=== PATIENT | male | born 1980 | race Caucasian/White ===

== ENCOUNTER → 2016-06-06 | Outpatient (CLI) | payer BC ==
--- NOTE | 2016-06-07 07:01 | MR ---
EXAMINATION TYPE: MR lumbar spine wo con DATE OF EXAM: 06/06/2016 10:10 AM COMPARISON: NONE HISTORY: 36-year-old male with low back pain TECHNIQUE: Multiplanar, multisequence images of the lumbar spine were acquired. Findings: Vertebral body heights are preserved and alignment is maintained. Prominent red marrow compatible with patient's relatively young age. No suspicious bone marrow replac ement. There are Schmorl's nodes at L4-L5 with some mild increased T2 signal suggesting possible subacute Sc hmorl's nodes. There is mild edematous Modic type I endplate change anteriorly at L3-L4, and L4-L5 an d posteriorly at L5-S1. The L4-L5 and L5-S1 intervertebral discs are mildly desiccated with a mild disc space narrowing and d iffuse bulging. There is a posterior annular fissure extending towards the right at L5-S1. Conus medullaris is normal. From T12 down through L4 levels, there is no spinal canal or neuroforaminal stenosis. At L4-L5, there is a right paracentral broad-based disc protrusion. There is minimal bilateral inferi or foraminal narrowing without spinal canal stenosis. At L5-S1, there is very minimal broad-based disc bulge with posterior annular fissure. Minimal bilate ral inferior foraminal narrowing on both sides. No spinal canal stenosis. No prevertebral or paravertebral soft tissue abnormality. IMPRESSION: 1. Mild degenerative disc disease especially at L4-L5 and L5-S1 with some associated edematous Modic type I endplate changes. Also, findings suggest subacute to chronic endplate Schmorl's nodes at L4-L5 . 2. At L4-L5, slight bulging disc and a mild right paracentral broad-based protrusion is present. Ther e is minimal bilateral inferior neuroforaminal narrowing. 3. At L5-S1, there is minimal broad-based bulging disc with posterior annular fissure. This also resu lts in minimal bilateral inferior neural foraminal narrowing. 4. No high-grade foraminal or canal compromise.
== END | disposition home or self-care (01) ==
LOC: RADMRIMAIN 09:39
PROVIDERS: ATTEND Family Medicine
DX: M99.73 Connective tissue and disc stenosis of intervertebral foramina of lumbar region (principal); M51.37 Other intervertebral disc degeneration, lumbosacral region; M51.27 Other intervertebral disc displacement, lumbosacral region
CPT/HCPCS: 72148

== ENCOUNTER → 2019-08-09 | Outpatient (CLI) | payer BC ==
[2019-08-09 15:05] LABS: Basophils # (A) 0.1 k/uL (0-0.2); Basophils % (A) 1 %; Eosinophils # (A) 0.2 k/uL (0-0.7); Eosinophils % (A) 3 %; HCT 44.6 % (39.0-53.0); HGB 14.4 gm/dL (13.0-17.5); Lymphocytes # (A) 2.2 k/uL (1.0-4.8); Lymphocytes % (A) 28 %; MCH 29.5 pg (25.0-35.0); MCHC 32.3 g/dL (31.0-37.0); MCV 91.4 fL (80.0-100.0); Mean Platelet Volume 10.6; Monocytes # (A) 0.5 k/uL (0-1.0); Monocytes % (A) 7 %; Neutrophils # (A) 4.7 k/uL (1.3-7.7); Neutrophils % (A) 60 %; Platelet Count 176 k/uL (150-450); RBC 4.87 m/uL (4.30-5.90); RDW 13.1 % (11.5-15.5); WBC 7.9 k/uL (3.8-10.6)
[2019-08-10 02:10] LABS: Erythrocyte Sedimentation Rate 52 mm/Hr (0-15)
[2019-08-10 02:30] LABS: ALT 33 U/L (10-49); AST 30 U/L (14-35); African American GFR (CKD) 131.3 (60.0-200.0); Albumin/Globulin Ratio 2.09 (1.60-3.17); Alkaline Phosphatase 68 U/L (41-126); BUN/Creat Ratio 21.25 Ratio (12.00-20.00); C Reactive Protein <0.4 mg/dL (0.0-0.8); Calcium 9.3 mg/dL (8.7-10.3); Carbon Dioxide 23.2 mmol/L (21.6-31.8); Chloride 108 mmol/L (96-109); Globulin 2.2 g/dL (1.6-3.3); Glucose 93 mg/dL (70-110); Non-African American GFR(CKD) 113.3 (60.0-200.0); Potassium 4.1 mmol/L (3.5-5.5); Sodium 139 mmol/L (135-145); Total Bilirubin 0.4 mg/dL (0.3-1.2); Total Protein 6.8 g/dL (6.2-8.2)
== END | disposition home or self-care (01) ==
LOC: LABWHC1 14:28
PROVIDERS: ATTEND Internal Medicine Rheumatology
DX: Z79.899 Other long term (current) drug therapy (principal)
CPT/HCPCS: 36415; 80053; 85025; 85652; 86140

== ENCOUNTER → 2019-11-06 | Outpatient (CLI) | payer BC | END | disposition home or self-care (01) | LOC: LABWHC1 11:32 | PROVIDERS: ATTEND Internal Medicine Rheumatology | DX: Z51.81 Encounter for therapeutic drug level monitoring (principal); Z79.899 Other long term (current) drug therapy | CPT/HCPCS: 36415; 86480 ==

== ENCOUNTER → 2020-03-06 | Outpatient (CLI) | payer BC | END | disposition home or self-care (01) | LOC: LABWHC1 16:54 | PROVIDERS: ATTEND Emergency Medicine | DX: Z20.822 Contact with and (suspected) exposure to COVID-19 (principal) | CPT/HCPCS: U0003; C9803; U0005 ==

== ENCOUNTER → 2020-11-01 | Outpatient (CLI) | payer BC ==
[2020-11-01 19:11] LABS: Basophils # (A) 0.08 X 10*3/uL (0.00-0.10); Basophils % (A) 0.8 %; Eosinophils # (A) 0.69 X 10*3/uL (0.04-0.35); Eosinophils % (A) 6.8 %; HCT 47.3 % (39.6-50.0); HGB 15.7 g/dL (13.0-17.0); Lymphocytes # (A) 3.12 X 10*3/uL (0.90-5.00); Lymphocytes % (A) 30.7 %; MCHC 33.2 g/dL (32.0-37.0); MCV 90.3 fL (80.0-97.0); Mean Platelet Volume 14.2 fL (9.5-12.2); Monocytes % (A) 7.9 %; Neutrophils # (A) 5.44 X 10*3/uL (1.80-7.70); Neutrophils % (A) 53.4 %; Platelet Count 165 X 10*3/uL (140-440); RBC 5.24 X 10*6/uL (4.40-5.60); WBC 10.17 X 10*3/uL (4.50-10.00)
[2020-11-01 20:15] LABS: Erythrocyte Sedimentation Rate 2 mm/Hr (0-15)
[2020-11-01 22:23] LABS: ALT 33 U/L (10-49); AST 26 U/L (14-35); African American GFR (CKD) 130.4 (60.0-200.0); Albumin/Globulin Ratio 2.29 (1.60-3.17); Alkaline Phosphatase 68 U/L (41-126); C Reactive Protein <0.4 mg/dL (0.0-0.8); Calcium 9.5 mg/dL (8.7-10.3); Carbon Dioxide 23.9 mmol/L (21.6-31.8); Chloride 110 mmol/L (96-109); Globulin 2.1 g/dL (1.6-3.3); Glucose 95 mg/dL (70-110); Non-African American GFR(CKD) 112.5 (60.0-200.0); Potassium 4.5 mmol/L (3.5-5.5); Sodium 141 mmol/L (135-145); Total Bilirubin 0.2 mg/dL (0.3-1.2); Total Protein 6.9 g/dL (6.2-8.2)
== END | disposition home or self-care (01) ==
LOC: LABWHC1 11:01
PROVIDERS: ATTEND Internal Medicine Rheumatology
DX: Z79.899 Other long term (current) drug therapy (principal)
CPT/HCPCS: 36415; 80053; 85025; 85652; 86140

== ENCOUNTER → 2021-01-23 | Outpatient (CLI) | payer BC ==
[2021-01-23 23:58] LABS: Basophils # (A) 0.05 X 10*3/uL (0.00-0.10); Basophils % (A) 0.5 %; Eosinophils # (A) 0.25 X 10*3/uL (0.04-0.35); Eosinophils % (A) 2.6 %; HCT 44.4 % (39.6-50.0); HGB 14.5 g/dL (13.0-17.0); Lymphocytes # (A) 2.63 X 10*3/uL (0.90-5.00); Lymphocytes % (A) 27.8 %; MCH 30.3 pg (27.0-32.0); MCHC 32.7 g/dL (32.0-37.0); MCV 92.7 fL (80.0-97.0); Mean Platelet Volume 13.3 fL (9.5-12.2); Monocytes % (A) 9.5 %; Neutrophils # (A) 5.57 X 10*3/uL (1.80-7.70); Platelet Count 183 X 10*3/uL (140-440); RBC 4.79 X 10*6/uL (4.40-5.60); WBC 9.46 X 10*3/uL (4.50-10.00)
[2021-01-24 00:44] LABS: ALT 29 U/L (10-49); AST 21 U/L (14-35); African American GFR (CKD) 130.7 (60.0-200.0); Albumin 4.6 g/dL (3.8-4.9); Albumin/Globulin Ratio 2.01 (1.60-3.17); Alkaline Phosphatase 67 U/L (41-126); BUN/Creat Ratio 14.45 Ratio (12.00-20.00); Blood Urea Nitrogen 11.3 mg/dL (9.0-27.0); Calcium 9.1 mg/dL (8.7-10.3); Carbon Dioxide 22.8 mmol/L (20.0-27.5); Chloride 103 mmol/L (96-109); Globulin 2.3 g/dL (1.6-3.3); Glucose 96 mg/dL (70-110); Non-African American GFR(CKD) 112.8 (60.0-200.0); Potassium 4.3 mmol/L (3.5-5.5); Sodium 137 mmol/L (135-145); Total Protein 6.9 g/dL (6.2-8.2)
[2021-01-24 01:25] LABS: C Reactive Protein <0.30 mg/dL (0.00-0.80)
[2021-01-24 04:05] LABS: Erythrocyte Sedimentation Rate 4 mm/Hr (0-15)
== END | disposition home or self-care (01) ==
LOC: LABWHC1 15:24
PROVIDERS: ATTEND Internal Medicine Rheumatology
DX: Z79.899 Other long term (current) drug therapy (principal)
CPT/HCPCS: 36415; 80053; 85025; 85652; 86140; 86480

== ENCOUNTER → 2021-07-09 | Outpatient (CLI) | payer BC ==
[2021-07-09 23:06] LABS: Basophils # (A) 0.08 X 10*3/uL (0.00-0.10); Basophils % (A) 0.8 %; Eosinophils # (A) 0.22 X 10*3/uL (0.04-0.35); Eosinophils % (A) 2.2 %; HCT 45.4 % (39.6-50.0); HGB 14.9 g/dL (13.0-17.0); Immature Grans, Automated 0.4 %; Lymphocytes # (A) 3.03 X 10*3/uL (0.90-5.00); Lymphocytes % (A) 30.4 %; MCH 29.9 pg (27.0-32.0); MCHC 32.8 g/dL (32.0-37.0); NRBC Per 100 WBC 0 /100 WBCS (0.0-0.0); Neutrophils % (A) 58.2 %; Platelet Count 158 X 10*3/uL (140-440); RBC 4.99 X 10*6/uL (4.40-5.60); RDW 13.3 % (11.5-14.5); WBC 9.97 X 10*3/uL (4.50-10.00)
[2021-07-10 00:31] LABS: Erythrocyte Sedimentation Rate 6 mm/Hr (0-15)
[2021-07-10 00:47] LABS: ALT 25 U/L (10-49); AST 25 U/L (14-35); African American GFR (CKD) 127.6 (60.0-200.0); Albumin 4.5 g/dL (3.8-4.9); Albumin/Globulin Ratio 1.75 (1.60-3.17); Alkaline Phosphatase 56 U/L (41-126); BUN/Creat Ratio 14.96 Ratio (12.00-20.00); Blood Urea Nitrogen 12.4 mg/dL (9.0-27.0); C Reactive Protein <0.30 mg/dL (0.00-0.80); Carbon Dioxide 21.9 mmol/L (20.0-27.5); Chloride 105 mmol/L (96-109); Globulin 2.6 g/dL (1.6-3.3); Glucose 87 mg/dL (70-110); Non-African American GFR(CKD) 110.1 (60.0-200.0); Potassium 4.2 mmol/L (3.5-5.5); Sodium 139 mmol/L (135-145)
== END | disposition home or self-care (01) ==
LOC: LABWHC1 15:19
PROVIDERS: ATTEND Internal Medicine Rheumatology
DX: Z79.899 Other long term (current) drug therapy (principal)
CPT/HCPCS: 36415; 80053; 85025; 85652; 86140